=== PATIENT | female | born 1960 | race Caucasian/White ===

== ENCOUNTER 2022-03-19 10:35 | Outpatient (CLI) | payer OTHER | END 2022-03-19 23:59 | disposition home or self-care (01) | LOC: MLB 10:35 → EDSTATUS 03-21 12:20 | PROVIDERS: ATTEND Internal Medicine Gastroenterology | DX: Z01.812 Encounter for preprocedural laboratory examination (principal); Z20.822 Contact with and (suspected) exposure to COVID-19 ==

== ENCOUNTER 2022-05-02 09:06 | Day surgery (SDC) | payer OTHER ==
[~2022-05-02] VITALS: Ht 152.4 cm; Wt 62.1 kg
[2022-05-02] MEDS ORDERED: LIDOCAINE 2% 100 MG/5 ML UJET TP ONE (11:02)
[2022-05-02] MEDS ORDERED: fentaNYL citrate 0.05 MG/ML VIAL ONE (11:02)
[2022-05-02] MEDS ORDERED: fentaNYL citrate 0.05 MG/ML VIAL IVP ONE (11:55)
== END 2022-05-02 12:30 | disposition home or self-care (01) ==
LOC: MDS 09:06 → MMU 09:27 → MDS 12:30
PROVIDERS: ATTEND Internal Medicine Gastroenterology
DX: Z12.11 Encounter for screening for malignant neoplasm of colon (principal); D12.5 Benign neoplasm of sigmoid colon; K64.9 Unspecified hemorrhoids; K57.30 Diverticulosis of large intestine without perforation or abscess without bleeding; J45.909 Unspecified asthma, uncomplicated; E78.5 Hyperlipidemia, unspecified; K21.9 Gastro-esophageal reflux disease without esophagitis; M19.90 Unspecified osteoarthritis, unspecified site; Z90.49 Acquired absence of other specified parts of digestive tract; Z79.899 Other long term (current) drug therapy; Z20.822 Contact with and (suspected) exposure to COVID-19
CPT/HCPCS: 45385; 87426; J3010